=== PATIENT | male | born 1975 | race Caucasian/White ===

== ENCOUNTER 2018-08-30 12:51 | Emergency (ER) | payer OTHER ==
[2018-08-30 13:07] VITALS: BP 137/78
--- NOTE | 2018-08-30 13:35 | UC ---
Lower Extremity/Ankle HPI - HPI Summary HPI Summary: Patient has had increasing discomfort and swelling at his left fifth MTP joint over the past several weeks. States his left fifth toe is slightly turned in. Denies any injury although he does do some martial arts so states he may have sustained an injury at some point he was unaware of. Has some occasional tingling in the area. Pain is worse with weight bearing. - History of Current Complaint Chief Complaint: UCLowerExtremity Stated Complaint: TOE INJURY Time Seen by Provider: 08/30/18 13:14 Hx Obtained From: Patient Onset/Duration: Gradual Onset, Lasting Weeks, Still Present Severity Initially: Moderate Severity Currently: Moderate Pain Intensity: 3 Pain Scale Used: 0-10 Numeric Aggravating Factor(s): Standing, Ambulation Alleviating Factor(s): Rest Able to Bear Weight: Yes - Allergies/Home Medications Allergies/Adverse Reactions: Allergies Allergy/AdvReac Type Severity Reaction Status Date / Time No Known Allergies Allergy Verified 08/30/18 13:07 Home Medications: Home Medications NK [No Home Medications Reported] 08/30/18 [History Confirmed 08/30/18] PMH/Surg Hx/FS Hx/Imm Hx Previously Healthy: Yes - Surgical History Surgical History: None - Family History Known Family History: Negative: Hypertension - Social History Alcohol Use: Rare Substance Use Type: None Smoking Status (MU): Never Smoked Tobacco Review of Systems Constitutional: Negative Skin: Negative Respiratory: Negative Cardiovascular: Negative Gastrointestinal: Negative Musculoskeletal: Arthralgia, Edema All Other Systems Reviewed And Are Negative: Yes Physical Exam Triage Information Reviewed: Yes Appearance: Well-Appearing, No Pain Distress, Well-Nourished Vital Signs: Initial Vital Signs Temp 98.1 F 08/30/18 13:01 Pulse 75 08/30/18 13:01 Resp 18 08/30/18 13:01 BP 137/78 08/30/18 13:01 Pulse Ox 98 08/30/18 13:01 Vital Signs Reviewed: Yes Eyes: Positive: Conjunctiva Clear ENT: Positive: Hearing grossly normal Neck: Positive: Supple Respiratory: Positive: No respiratory distress, No accessory muscle use Cardiovascular: Positive: Pulses Normal Abdomen Description: Positive: Soft Musculoskeletal: Positive: Edema @ - LEFT 5TH MTP JOINT WITH SLIGHT EDEMA AND ERYTHEMA. TTP Neurological: Positive: Alert Psychological: Positive: Age Appropriate Behavior Skin: Negative: rashes Diagnostics - Radiology LEFT 5TH TOE XRAY Radiology Interpretation Completed By: Radiologist Summary of Radiographic Findings: Questionable nondisplaced fracture at the medial plantar aspect of the. proximal pole of the left small toe proximal phalanx. Lower Extremity Course/Dx - Differential Dx/Diagnosis Provider Diagnoses: nondisplaced fracture at the medial plantar aspect of the proximal pole of the left small toe proximal phalanx. Discharge - Sign-Out/Discharge Documenting (check all that apply): Patient Departure All imaging exams completed and their final reports reviewed: Yes - Discharge Plan Condition: Stable Disposition: HOME Patient Education Materials: Toe Fracture (ED) Referrals: Taylor Doresy MD [Medical Doctor] - 1 Week Additional Instructions: XRAY SHOWS Questionable nondisplaced fracture at the medial plantar aspect of the proximal pole of the left small toe proximal phalanx. POST-OP SHOE TO HELP OFFLOAD PRESSURE FROM THE FRONT OF YOUR FOOT. REST, ICE, ELEVATE. FOLLOW-UP WITH ORTHO OR PODIATRY THIS WEEK. P[facility]IAT[facility] [place] Dr. Renea Flanagan [address] [place] [address] [facility] [address] Paulo Ward [address] [facility] [address] Taj López. [address] [place] [address] Please call his office at [phone] to make an appointment to be seen Dr. Toney De Santiago. [address] [place] [address] - Billing Disposition and Condition Condition: STABLE Disposition: Home
--- NOTE | 2018-08-30 14:17 | RAD ---
INDICATION: Pain in the left small toe after trauma TECHNIQUE: 3 views of the left small toe were obtained. FINDINGS: On the oblique view there is a lucency overlying the medial and plantar aspect of the proximal head of the left small toe proximal phalanx which could be a nondisplaced fracture. Remaining visualized bones are intact and appropriately aligned. IMPRESSION: Questionable nondisplaced fracture at the medial plantar aspect of the proximal pole of the left small toe proximal phalanx.
== END 2018-08-30 14:39 | disposition home or self-care (01) ==
LOC: UCEAST 12:51
DX: S99.922A Unspecified injury of left foot, initial encounter (principal); X58.XXXA Exposure to other specified factors, initial encounter; Y92.9 Unspecified place or not applicable
CPT/HCPCS: 99212; G0463